=== PATIENT | female | born 1995 | race African-American/Black ===

== ENCOUNTER 2020-09-18 00:11 | Emergency (ER) | payer BC ==
[~2020-09-18] VITALS: Ht 152.4 cm; Wt 99.8 kg
[2020-09-18 02:15] VITALS: BP 140/83
[2020-09-18] MEDS ORDERED: cefTRIAXone W LIDOCAINE 1 GM IM IM ONE (04:45)
[2020-09-18] MEDS ORDERED: LIDOCAINE 1% HCL (LOCAL ANESTH.) INJ 20ML MDV ONE (04:50)
[2020-09-18] MEDS ORDERED: cefTRIAXone SOD 1,000 MG VL ONE (04:51)
== END 2020-09-18 04:46 | disposition home or self-care (01) ==
LOC: ER 00:14
DX: J06.9 Acute upper respiratory infection, unspecified (principal); Z20.828 Contact with and (suspected) exposure to other viral communicable diseases
CPT/HCPCS: 36415; 71045; 87426; 96372; 99284; C9803; J0696; J2001; U0003

== ENCOUNTER 2022-07-21 22:57 | Observation (INO) | payer BC ==
[~2022-07-21] VITALS: Ht 152.4 cm; Wt 114.8 kg
[2022-07-21] MEDS ORDERED: PREN-96 PO (23:47)
[2022-07-22 01:12] LABS: Albumin 2.7 g/dL (3.4-5.0); BUN/Creatinine Ratio 8.1; Calcium 8.4 mg/dL (8.5-10.1); Potassium 3.4 mmol/L (3.5-5.1)
[2022-07-22 01:20] LABS: Bilirubin, Total 0.2 mg/dL (0.2-1.0); Total Protein 6.3 g/dL (6.4-8.2)
== END 2022-07-22 01:48 | disposition home or self-care (01) ==
LOC: LDRP 22:57
PROVIDERS: ADMIT Obstetrics & Gynecology Obstetrics; ATTEND Obstetrics & Gynecology Obstetrics
DX: O26.892 Other specified pregnancy related conditions, second trimester (principal); R10.11 Right upper quadrant pain; Z3A.20 20 weeks gestation of pregnancy
CPT/HCPCS: 36415; 80053; 81002; 94760; G0378